=== PATIENT | female | born 1950 | race Caucasian/White ===

== ENCOUNTER 2021-06-22 15:38 | Inpatient (IN) | payer MEDICARE, SELFPAY ==
--- NOTE | 2021-06-22 | ECG_ITS ---
Test Reason : [facility] ED suspected TIA Blood Pressure : / mmHG Vent. Rate : 068 BPM Atrial Rate : 068 BPM P-R Int : 122 ms QRS Dur : 094 ms QT Int : 460 ms P-R-T Axes : -16 023 021 degrees QTc Int : 489 ms Normal sinus rhythm Prolonged QTc Abnormal ECG No previous ECGs available Referred By: Maritza Dumas Electronically Signed By:Catracho Davies
[2021-06-22 18:00] VITALS: BP 130/73; PULSE 81; RESP 17; TEMP 36.3; O2SAT 98
[2021-06-22 18:55] VITALS: BP 141/63; PULSE 99; RESP 17; TEMP 36.6; O2SAT 100
[2021-06-22 19:51] VITALS: BMI 31.1
[2021-06-22 22:22] VITALS: BP 170/72; PULSE 61
[2021-06-22] MEDS: Metoprolol Succinate ER 50 MG TAB.ER.24H PO (22:22)
[2021-06-22] MEDS: traZODone HCL 50 MG TABLET PO (22:22)
[2021-06-22 22:36] LABS: Amphetamine Screen Urine Not Detected (Not Detect); Barbiturates, Urine Not Detected (Not Detect); Benzodiazepines Screen Urine Not Detected (Not Detect); Cannabinoid Screen Urine POSITIVE (Not Detect); Cocaine Screen Urine Not Detected (Not Detect); Opiate Screen Urine Not Detected (Not Detect); Phencyclidine Screen Urine Not Detected (Not Detect)
[2021-06-23 09:44] LABS: Free T4 (Free Thyroxine) 1.07 ng/dL (0.71-1.85); Thyroid Stimulating Hormone 2.53 uIU/mL (0.32-4.0)
[2021-06-23] MEDS: Sertraline HCL 25 MG TABLET PO (09:46)
[2021-06-23] MEDS: Clopidogrel Bisulfate 75 MG TABLET PO (09:46)
[2021-06-23] MEDS: Thiamine HCL 100 MG TABLET PO (09:46)
--- NOTE | 2021-06-23 09:50 | HO.PSYADMNOT ---
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 She was initially brought to the ED since she complained of AH and VH seeing my , anxiety and poor concentration; she was diagnosed with UTI and treated. Also, since she presented with motor symptoms, she was diagnosed with a TIA, already fully worked-out at [facility]. She complained of depressive symptoms most of her life, characterized by depressed mood, anhedonia, lack of energy and feeling of hopelessness. She recently had several losses in her family since 2016, with the of her daughter and in February 2021, the of her . Her depressive symptoms worsened with neurovegetative symptoms elicited by severe anhedonia, poor sleep and poor appetite. On the ED, she also complained of passive suicidal ideation. Since she was unable to contract for safety in the ED, she was transferred to this facility for psychiatric stabilization. During the intake interview, she acknowledged depressive symptoms already detailed but also poor concentration, poor attention spam and poor short term memory. She was recently started on Zoloft 25. She was able to contract for safety and treatment options were discussed. Past Psychiatric History: Never admitted into the hospital for psychiatric reasons. She was treated by her PCP with Zoloft in the past with limited improvement. Medical Evaluation Reviewed: Yes PMF Narrative: HTN Family History: Paternal grandfather committed suicide. Her son and a daughter (who ) have substance abuse problems. Her son attempted suicide once, her daughter of alcohol intoxication (suicide?) Social History: The patient is the oldest of 2 siblings, milestones were achieved at expected age, she was raised by her parents, she attended regular school and graduated. Later, she attended college and she got a degree in nursing. She was , she had 3 children, she used to be highly functional. Recently, she lost her and she has good social support Substance History: Use of cannabis as edible only Trauma History: Denies Diagnostics Vital Signs (24Hr): Vital Signs - 24 hr 06/22/21 18:00 06/22/21 18:55 06/22/21 22:22 Temperature 97.4 F 97.9 F Pulse Rate 81 99 61 Respiratory Rate 17 17 Blood Pressure 130/73 141/63 H 170/72 H Pulse Oximetry 98 100 Body Mass Index 31.1 Labs Labs: Laboratory Results - last 48 hr 06/22/21 06/23/21 21:45 08:00 TSH 2.53 Free T4 1.07 Urine Opiates Screen Not Detected Ur Barbiturates Screen Not Detected Ur Phencyclidine Scrn Not Detected Ur Amphetamines Screen Not Detected U Benzodiazepines Scrn Not Detected Urine Cocaine Screen Not Detected U Marijuana (THC) Screen POSITIVE H Meds/Allergies Meds Home Medications Acetaminophen (Acetaminophen 325 Mg Tablet) 650 mg PO Q6H PRN PRN Reason: Headache/Pain Mild Scale (1-3) Al Hydroxide/Mg Hydroxide (Magnesium Hydrox/Alum Hydrox 30 Ml Oral.Susp) 30 ml PO Q6H PRN PRN Reason: Heartburn/Nausea Atorvastatin Calcium (Atorvastatin Calcium 80 Mg Tablet) 80 mg PO BEDTIME [facility] Clopidogrel Bisulfate (Clopidogrel Bisulfate 75 Mg Tablet) 75 mg PO DAILY [facility] Last Admin: 06/23/21 09:46 Dose: 75 mg Documented by: Hydroxyzine HCl (Hydroxyzine Hcl 25 Mg Tablet) 25 mg PO Q6H PRN PRN Reason: Anxiety Magnesium Hydroxide (Milk Of Magnesia 30 Ml Oral.Susp) 30 ml PO DAILY PRN PRN Reason: Constipation Metoprolol Succinate (Metoprolol Succinate Er 50 Mg Tab.Er.24h) 50 mg PO BEDTIME [facility]; Protocol Last Admin: 06/22/21 22:22 Dose: 50 mg Documented by: Sertraline HCl (Sertraline Hcl 25 Mg Tablet) 25 mg PO DAILY [facility] Last Admin: 06/23/21 09:46 Dose: 25 mg Documented by: Thiamine HCl (Thiamine Hcl 100 Mg Tablet) 100 mg PO DAILY [facility] Last Admin: 06/23/21 09:46 Dose: 100 mg Documented by: Trazodone HCl (Trazodone Hcl 50 Mg Tablet) 50 mg PO BEDTIME PRN PRN Reason: Insomnia Last Admin: 06/22/21 22:22 Dose: 50 mg Documented by: Allergies Allergies Allergy/AdvReac Type Severity Reaction Status Date / Time aspirin [ASA] AdvReac Mild Abdominal Verified 06/22/21 16:39 Pain Mental Status Exam Mental Status Exam Patient Appearance: Well Grooomed and Appropriate Patient Orientation: Person, Place, Time and Situation Level of Consciousness: Awake and Appropriate Patient Behavior: Cooperative and Anxious Mood Description: Calm and Appropriate Affect Description: Constricted Ability to Follow Directions: Good Speech Pattern: Clear Hallucinations: None (at this moment) Delusions: Not Present Thought Process: Linear Thought Content: positive for Circumstantial Depressive Symptoms: Increased Anxiety, Insomnia, Changes in Appetite, Loss of Int. in Activity, Feelings of Worthlessness and Feelings of Guilt Judgement: Fair Assessment & Plan Assessment & Plan (1) Major depression, recurrent: Status: Acute Qualifiers: Active/Remission status: currently active Major depression episode severity: severe Psychotic features: without psychotic features Qualified Code(s): F33.2 - Major depressive disorder, recurrent severe without psychotic features Code(s): F33.9 - Major depressive disorder, recurrent, unspecified Assessment and Plan: The patient is an elderly female, , with a long history of dysphoria, not formally treated, admitted after an exacerbation of depression after TIA and UTI. Plan: Increase Zoloft up to 50 mg po daily. Gather collateral information. Reason for continued inpatient stay Substantial Risk for: harm to self, inability to function, rapid decompensation and med/psych decompensation
[2021-06-23 09:57] LABS: Vitamin B12 > 2000 pg/mL (200-900)
[2021-06-23 17:54] VITALS: BP 132/62; PULSE 60; TEMP 36.9; O2SAT 97
[2021-06-23 20:12] VITALS: BP 137/71; PULSE 58
[2021-06-23] MEDS: Atorvastatin Calcium 80 MG TABLET PO (20:13)
[2021-06-24] MEDS: Sertraline HCL 50 MG TABLET PO (08:08)
[2021-06-24] MEDS: Thiamine HCL 100 MG TABLET PO (08:08)
[2021-06-24] MEDS: Clopidogrel Bisulfate 75 MG TABLET PO (08:08)
--- NOTE | 2021-06-24 09:55 | HO.PSYCHPN ---
Subjective Subjective Date of Service: 06/24/21 Reason For Visit: Major Depressive Disorder Interim History: pt seen in her room, reclining in her bed. she expresses some concern about her BP/P, saying her metoprolol has been held. she denies any symptoms of hypotension. she asks about changing the HOLD params for the medication. MD states he will look into her BP/P concerns. otherwise she reports she saw her son yesterday, which made her very happy. she is not comfortable returning to live with him due to the two pit bulls, however. no other questions or complaints. per staff, pt's recently and she has not been taking care of herself. no issues on the unit. Mental Status Exam Mental Status Exam Narrative: appropriately dressed and groomed. no PMA/PMR. cooperative. speech soft with reduced prosody, otherwise WNL. thoughts linear and logical. affect constricted, normo-intense. no SI/HI/AVH expressed. Diagnostics Vital Signs (24Hr): Vital Signs - 24 hr 06/23/21 17:54 06/23/21 20:12 Temperature 98.4 F Pulse Rate 60 58 Blood Pressure 132/62 137/71 Pulse Oximetry 97 Body Mass Index 31.1 Labs Labs: Laboratory Results - last 48 hr 06/22/21 06/23/21 06/23/21 21:45 08:00 08:00 Vitamin B12 > 2000 H TSH 2.53 Free T4 1.07 Urine Opiates Screen Not Detected Ur Barbiturates Screen Not Detected Ur Phencyclidine Scrn Not Detected Ur Amphetamines Screen Not Detected U Benzodiazepines Scrn Not Detected Urine Cocaine Screen Not Detected U Marijuana (THC) Screen POSITIVE H Medications Medications Current Medications Generic Name Dose Route Start Last Admin Trade Name Freq PRN Reason Stop Dose Admin Acetaminophen 650 mg 06/22/21 20:32 Acetaminophen 325 Mg Tablet PO Q6H PRN Headache/Pain Mild Scale (1-3) Al Hydroxide/Mg Hydroxide 30 ml 06/22/21 20:32 Magnesium Hydrox/Alum Hydrox 30 Ml Oral.Susp PO Q6H PRN Heartburn/Nausea Atorvastatin Calcium 80 mg 06/23/21 21:00 06/23/21 20:13 Atorvastatin Calcium 80 Mg Tablet PO 80 mg BEDTIME [facility] Administration Clopidogrel Bisulfate 75 mg 06/23/21 09:00 06/24/21 08:08 Clopidogrel Bisulfate 75 Mg Tablet PO 75 mg DAILY [facility] Administration Hydroxyzine HCl 25 mg 06/22/21 20:32 Hydroxyzine Hcl 25 Mg Tablet PO Q6H PRN Anxiety Magnesium Hydroxide 30 ml 06/22/21 20:32 Milk Of Magnesia 30 Ml Oral.Susp PO DAILY PRN Constipation Metoprolol Succinate 50 mg 06/22/21 22:00 06/23/21 20:12 Metoprolol Succinate Er 50 Mg Tab.Er.24h PO Not Given BEDTIME [facility] Protocol Sertraline HCl 50 mg 06/24/21 09:00 06/24/21 08:08 Sertraline Hcl 50 Mg Tablet PO 50 mg DAILY [facility] Administration Thiamine HCl 100 mg 06/23/21 09:00 06/24/21 08:08 Thiamine Hcl 100 Mg Tablet PO 100 mg DAILY [facility] Administration Trazodone HCl 50 mg 06/22/21 20:32 06/22/21 22:22 Trazodone Hcl 50 Mg Tablet PO 50 mg BEDTIME PRN Administration Insomnia Allergies Allergies Allergy/AdvReac Type Severity Reaction Status Date / Time aspirin [ASA] AdvReac Mild Abdominal Verified 06/22/21 16:39 Pain Assessment & Plan Assessment & Plan (1) Major depression, recurrent: Qualifiers: Active/Remission status: currently active Major depression episode severity: severe Psychotic features: without psychotic features Qualified Code(s): F33.2 - Major depressive disorder, recurrent severe without psychotic features Status: Acute Code(s): F33.9 - Major depressive disorder, recurrent, unspecified Assessment and Plan: The patient is an elderly female, , with a long history of dysphoria, not formally treated, admitted after an exacerbation of depression after TIA and UTI. Plan: Increased Zoloft up to 50 mg po daily. changed annika on metoprolol to allow for slower pulse. Gather collateral information. Greater than 50% of the session was spent on counseling and/or coordination of care Reason for contiued inpatient stay Substantial Risk for: inability to function
--- NOTE | 2021-06-24 15:30 | HO.HSGERICON ---
History of Present Illness Data of Consult Service Date: 06/24/21 Primary Care Provider: Camila Bernal MD [facility] Reason for consult: medical evaluation 71 Y O F with PMH of?hypertension, hyperlipidemia, anxiety, depression?prsently admitted to inpatient [facility] Psych for major depression. She was admitted from [facility] and I reviewed the record there. She presently there around June 17 with Left extremity numbness/involuntary movement/left cheek?numbness Symptoms resolved by etime patient came to ER. Patient underwent CT of head?CT angio of head and neck?which did not show any acute pathology?however showed?mild to moderate narrowing in the left vertebral artery?and right ACID CHANGER Neurology was consulted ; underwent?MRI of brain which did not show any pathology either Echo was within normal limits Neuro recommended plavix and continue statin [ patient intolerant to aspirin]. She was noted to be very depressed. Patient lost her ?2 months ago and still grieving the loss She was severely depressed?during last hospitalization she was offered inpatient psych?however?patient thought she would do better at home?and she went home but this time she equested psychiatric team consult?for?possible inpatient psych admission amd ws sent here at [facility]. Discharge Medications from [facility] reviewed Atorvastatin (atorvastatin 80 mg oral tablet)??See Instructions??TAKE ONE TABLET BY MOUTH EVERY DAY? Clopidogrel (Plavix 75 mg oral tablet)??75??Milligram??1??tablet??By Mouth??Daily? Sertraline (sertraline 25 mg oral tablet)??2??tab(s)??50??Milligram??By Mouth??Daily? Thiamine (thiamine 100 mg oral tablet)??100??Milligram??1??tablet??By Mouth??Daily? Trazodone (traZODone 50 mg oral tablet)??50??Milligram??1??tablet??By Mouth??Daily at bedtime?? She is presently doing well and has no acute complaint, she feels safe and fee that she is getting the right care. Review of Systems Review of Systems: Gen: no fever Resp: no sob, no cough CV: no chest, no POON, no leg edema GI: No n/v, no abd pain Neuro: No confusion Pscyh: happy, no SI PMFSH Medical History (Updated 06/24/21 @ 16:08 by Prasanth Riggs MD) Anxiety History of positive PPD History of TIA (transient ischemic attack) HLD (hyperlipidemia) HTN (hypertension) IBS (irritable bowel syndrome) Migraine Vitamin D deficiency Pertinent family history: CAD--Mother and father Surgical History (Updated 06/24/21 @ 15:41 by Prasanth Riggs MD) H/O abdominal hysterectomy H/O gastric bypass H/O hemorrhoidectomy Social History Household Members: Children and Other Housing: House Do you presently have visiting nurse or other home services: No Patient Tobacco Use Status: Never used Tobacco Use of substances other than those prescribed or required for medical reasons: Yes Substance Use Type: Marijuana Substance Use Frequency: Occasionally Last Used Substance: Just Prior to Admission Currently Displaying Signs/Symptoms of Drug Intoxication Withdrawal: No Any prior treatment program specific to substance use: No Have you been hit, kicked, punched, or otherwise hurt by someone within the past year? If so, by whom?: No Do you feel safe in your current relationship?: No Current Relationship Is there a partner from a previous relationship who is making you feel unsafe now?: No Are you made to feel afraid or neglected: No Advance Directives: No Advance Directives Information Provided: Yes Do you have thoughts of harming others: None Do you have a plan to hurt others: No Plan Recently lost weight without trying: Unsure Eating poorly because of decreased appetite: Yes Nutrition Risks: No Nutritional Risk Patient : No : No Poor oral hygiene: No service: No Sexual orientation: Straight/Heterosexual Meds Allergies Allergy/AdvReac Type Severity Reaction Status Date / Time aspirin [ASA] AdvReac Mild Abdominal Verified 06/22/21 16:39 Pain Active Medications: Current Medications Generic Name Dose Route Start Last Admin Trade Name Freq PRN Reason Stop Dose Admin Acetaminophen 650 mg 06/22/21 20:32 Acetaminophen 325 Mg Tablet PO Q6H PRN Headache/Pain Mild Scale (1-3) Al Hydroxide/Mg Hydroxide 30 ml 06/22/21 20:32 Magnesium Hydrox/Alum Hydrox 30 Ml Oral.Susp PO Q6H PRN Heartburn/Nausea Atorvastatin Calcium 80 mg 06/23/21 21:00 06/23/21 20:13 Atorvastatin Calcium 80 Mg Tablet PO 80 mg BEDTIME [facility] Administration Clopidogrel Bisulfate 75 mg 06/23/21 09:00 06/24/21 08:08 Clopidogrel Bisulfate 75 Mg Tablet PO 75 mg DAILY [facility] Administration Hydroxyzine HCl 25 mg 06/22/21 20:32 Hydroxyzine Hcl 25 Mg Tablet PO Q6H PRN Anxiety Magnesium Hydroxide 30 ml 06/22/21 20:32 Milk Of Magnesia 30 Ml Oral.Susp PO DAILY PRN Constipation Metoprolol Succinate 50 mg 06/22/21 22:00 06/23/21 20:12 Metoprolol Succinate Er 50 Mg Tab.Er.24h PO Not Given BEDTIME [facility] Protocol Sertraline HCl 50 mg 06/24/21 09:00 06/24/21 08:08 Sertraline Hcl 50 Mg Tablet PO 50 mg DAILY [facility] Administration Thiamine HCl 100 mg 06/23/21 09:00 06/24/21 08:08 Thiamine Hcl 100 Mg Tablet PO 100 mg DAILY [facility] Administration Trazodone HCl 50 mg 06/22/21 20:32 06/22/21 22:22 Trazodone Hcl 50 Mg Tablet PO 50 mg BEDTIME PRN Administration Insomnia Assessment and Plan (1) History of TIA (transient ischemic attack): Status: Acute (2) HLD (hyperlipidemia): Status: Acute (3) HTN (hypertension): Status: Acute (4) Major depression, recurrent: Qualifiers: Active/Remission status: currently active Major depression episode severity: severe Psychotic features: without psychotic features Qualified Code(s): F33.2 - Major depressive disorder, recurrent severe without psychotic features Status: Acute 71 Y O F with PMH of?hypertension, hyperlipidemia, anxiety, depression, recent hospitalization at [facility] for TIA and now here fore major Depression and seem to be doing well. Plan: I will advise that she continue all her medication for HTN, HLD and Plavix for TIA, she doesn't tolerate ASA. Her heart rate seem to be on low sie so we Can reduce Toprol to 25 and hold for HR less than 60. Psychiatric care per Psychiatric care per Psych team.
[2021-06-24 18:00] VITALS: BP 125/61; PULSE 97; RESP 17; TEMP 36.8; O2SAT 98
[2021-06-24] MEDS: Atorvastatin Calcium 80 MG TABLET PO (20:46)
[2021-06-24 20:47] VITALS: BP 112/64; PULSE 69
[2021-06-24] MEDS: Metoprolol Succinate ER 25 MG TAB.ER.24H PO (20:47)
[2021-06-25 06:00] VITALS: BP 113/59; PULSE 64; TEMP 36.5; O2SAT 97
[2021-06-25] MEDS: Clopidogrel Bisulfate 75 MG TABLET PO (08:09)
[2021-06-25] MEDS: Sertraline HCL 50 MG TABLET PO (08:09)
[2021-06-25] MEDS: Thiamine HCL 100 MG TABLET PO (08:09)
--- NOTE | 2021-06-25 11:31 | HO.PSYCHPN ---
Subjective Subjective Date of Service: 06/25/21 Reason For Visit: Major Depressive Disorder Interim History: pt asleep at the time of interview. she did not rouse to voice; it was felt to be more therapeutic to allow her to rest than to awaken her. per staff, she has had no issues in the past 24H. Mental Status Exam Mental Status Exam Narrative: sleeping in her bed. Diagnostics Vital Signs (24Hr): Vital Signs - 24 hr 06/24/21 18:00 06/24/21 20:47 06/25/21 06:00 Temperature 98.3 F 97.7 F Pulse Rate 97 69 64 Respiratory Rate 17 Blood Pressure 125/61 112/64 113/59 L Pulse Oximetry 98 97 Body Mass Index 31.1 Medications Medications Current Medications Generic Name Dose Route Start Last Admin Trade Name Freq PRN Reason Stop Dose Admin Acetaminophen 650 mg 06/22/21 20:32 Acetaminophen 325 Mg Tablet PO Q6H PRN Headache/Pain Mild Scale (1-3) Al Hydroxide/Mg Hydroxide 30 ml 06/22/21 20:32 Magnesium Hydrox/Alum Hydrox 30 Ml Oral.Susp PO Q6H PRN Heartburn/Nausea Atorvastatin Calcium 80 mg 06/23/21 21:00 06/24/21 20:46 Atorvastatin Calcium 80 Mg Tablet PO 80 mg BEDTIME [facility] Administration Clopidogrel Bisulfate 75 mg 06/23/21 09:00 06/25/21 08:09 Clopidogrel Bisulfate 75 Mg Tablet PO 75 mg DAILY [facility] Administration Hydroxyzine HCl 25 mg 06/22/21 20:32 Hydroxyzine Hcl 25 Mg Tablet PO Q6H PRN Anxiety Magnesium Hydroxide 30 ml 06/22/21 20:32 Milk Of Magnesia 30 Ml Oral.Susp PO DAILY PRN Constipation Metoprolol Succinate 25 mg 06/24/21 21:00 06/24/21 20:47 Metoprolol Succinate Er 25 Mg Tab.Er.24h PO 25 mg BEDTIME [facility] Administration Protocol Sertraline HCl 50 mg 06/24/21 09:00 06/25/21 08:09 Sertraline Hcl 50 Mg Tablet PO 50 mg DAILY [facility] Administration Thiamine HCl 100 mg 06/23/21 09:00 06/25/21 08:09 Thiamine Hcl 100 Mg Tablet PO 100 mg DAILY [facility] Administration Trazodone HCl 50 mg 06/22/21 20:32 06/22/21 22:22 Trazodone Hcl 50 Mg Tablet PO 50 mg BEDTIME PRN Administration Insomnia Allergies Allergies Allergy/AdvReac Type Severity Reaction Status Date / Time aspirin [ASA] AdvReac Mild Abdominal Verified 06/22/21 16:39 Pain Assessment & Plan Assessment & Plan (1) History of TIA (transient ischemic attack): Status: Acute Code(s): Z86.73 - Personal history of transient ischemic attack (TIA), and cerebral infarction without residual deficits (2) HLD (hyperlipidemia): Status: Acute Code(s): E78.5 - Hyperlipidemia, unspecified (3) HTN (hypertension): Status: Acute Code(s): I10 - Essential (primary) hypertension (4) Major depression, recurrent: Qualifiers: Active/Remission status: currently active Major depression episode severity: severe Psychotic features: without psychotic features Qualified Code(s): F33.2 - Major depressive disorder, recurrent severe without psychotic features Status: Acute Code(s): F33.9 - Major depressive disorder, recurrent, unspecified Assessment and Plan: 71 Y O F with PMH of?hypertension, hyperlipidemia, anxiety, depression, recent hospitalization at [facility] for TIA and now here fore major Depression and seem to be doing well. Plan: I will advise that she continue all her medication for HTN, HLD and Plavix for TIA, she doesn't tolerate ASA. Her heart rate seem to be on low sie so we Can reduce Toprol to 25 and hold for HR less than 60. Psychiatric care per Psychiatric care per Psych team. Greater than 50% of the session was spent on counseling and/or coordination of care Reason for contiued inpatient stay Substantial Risk for: harm to self, inability to function and rapid decompensation
[2021-06-25] MEDS: Acetaminophen 325 MG TABLET 650 MG PO (13:11)
[2021-06-25] MEDS: Magnesium Hydrox/Alum Hydrox 30 ML ORAL.SUSP PO (13:11)
[2021-06-25 18:00] VITALS: BP 122/58; PULSE 59; RESP 17; TEMP 36.5; O2SAT 98
[2021-06-25] MEDS: Loperamide HCl 2 MG CAPSULE PO ×2 (18:05→23:57)
[2021-06-25] MEDS: Atorvastatin Calcium 80 MG TABLET PO (20:06)
[2021-06-25 20:07] VITALS: BP 127/59; PULSE 57
[2021-06-25] MEDS: Metoprolol Succinate ER 25 MG TAB.ER.24H PO (20:07)
[2021-06-26] MEDS: Loperamide HCl 2 MG CAPSULE PO (09:10)
[2021-06-26] MEDS: Clopidogrel Bisulfate 75 MG TABLET PO (09:10)
[2021-06-26] MEDS: Sertraline HCL 50 MG TABLET PO (09:10)
[2021-06-26] MEDS: Thiamine HCL 100 MG TABLET PO (09:10)
[2021-06-26 11:00] VITALS: TEMP 36.9
--- NOTE | 2021-06-26 13:16 | HO.PSYCHPN ---
Subjective Subjective Date of Service: 06/26/21 Reason For Visit: Major Depressive Disorder Interim History: The patient reported still depressed with lack of energy. She reported poor sleep. OT did a MOCA and she scored 21/30. We will have a family meeting with her son at 3 pm today. Review of Systems Acute medical concerns: No Medical Review of Systems: unchanged Mental Status Exam Mental Status Exam Patient Appearance: Well Grooomed Patient Orientation: Person, Place, Time and Situation Level of Consciousness: Awake Patient Behavior: Appropriate and Cooperative Mood Description: Withdrawn and Depressed Affect Description: Constricted Patient Cognition Impaired: Yes Ability to Follow Directions: Good Speech Pattern: Clear Memory Description: Intact Hallucinations: None Delusions: Not Present Thought Process: Linear Thought Content: positive for Circumstantial Judgement: Fair Diagnostics Vital Signs (24Hr): Vital Signs - 24 hr 06/25/21 18:00 06/25/21 20:07 Temperature 97.7 F Pulse Rate 59 57 Respiratory Rate 17 Blood Pressure 122/58 L 127/59 L Pulse Oximetry 98 Body Mass Index 31.1 Medications Medications Current Medications Generic Name Dose Route Start Last Admin Trade Name Freq PRN Reason Stop Dose Admin Acetaminophen 650 mg 06/22/21 20:32 06/25/21 13:11 Acetaminophen 325 Mg Tablet PO 650 mg Q6H PRN Administration Headache/Pain Mild Scale (1-3) Al Hydroxide/Mg Hydroxide 30 ml 06/22/21 20:32 06/25/21 13:11 Magnesium Hydrox/Alum Hydrox 30 Ml Oral.Susp PO 30 ml Q6H PRN Administration Heartburn/Nausea Atorvastatin Calcium 80 mg 06/23/21 21:00 06/25/21 20:06 Atorvastatin Calcium 80 Mg Tablet PO 80 mg BEDTIME GERMAIN Administration Clopidogrel Bisulfate 75 mg 06/23/21 09:00 06/26/21 09:10 Clopidogrel Bisulfate 75 Mg Tablet PO 75 mg DAILY GERMAIN Administration Hydroxyzine HCl 25 mg 06/22/21 20:32 Hydroxyzine Hcl 25 Mg Tablet PO Q6H PRN Anxiety Loperamide HCl 2 mg 06/25/21 16:51 06/26/21 09:10 Loperamide Hcl 2 Mg Capsule PO 2 mg Q6H PRN Administration Diarrhea Magnesium Hydroxide 30 ml 06/22/21 20:32 Milk Of Magnesia 30 Ml Oral.Susp PO DAILY PRN Constipation Metoprolol Succinate 25 mg 06/24/21 21:00 06/25/21 20:07 Metoprolol Succinate Er 25 Mg Tab.Er.24h PO 25 mg BEDTIME GERMAIN Administration Protocol Sertraline HCl 50 mg 06/24/21 09:00 06/26/21 09:10 Sertraline Hcl 50 Mg Tablet PO 50 mg DAILY GERMAIN Administration Thiamine HCl 100 mg 06/23/21 09:00 06/26/21 09:10 Thiamine Hcl 100 Mg Tablet PO 100 mg DAILY GERMAIN Administration Trazodone HCl 50 mg 06/22/21 20:32 06/22/21 22:22 Trazodone Hcl 50 Mg Tablet PO 50 mg BEDTIME PRN Administration Insomnia Allergies Allergies Allergy/AdvReac Type Severity Reaction Status Date / Time aspirin [ASA] AdvReac Mild Abdominal Verified 06/22/21 16:39 Pain Assessment & Plan Assessment & Plan (1) History of TIA (transient ischemic attack): Status: Acute Code(s): Z86.73 - Personal history of transient ischemic attack (TIA), and cerebral infarction without residual deficits (2) HLD (hyperlipidemia): Status: Acute Code(s): E78.5 - Hyperlipidemia, unspecified (3) HTN (hypertension): Status: Acute Code(s): I10 - Essential (primary) hypertension (4) Major depression, recurrent: Qualifiers: Active/Remission status: currently active Major depression episode severity: severe Psychotic features: without psychotic features Qualified Code(s): F33.2 - Major depressive disorder, recurrent severe without psychotic features Status: Acute Code(s): F33.9 - Major depressive disorder, recurrent, unspecified Assessment and Plan: 71 Y O F with PMH of?hypertension, hyperlipidemia, anxiety, depression, recent hospitalization at [facility] for TIA and now here fore major Depression and seem to be doing well. Plan: I will advise that she continue all her medication for HTN, HLD and Plavix for TIA, she doesn't tolerate ASA. Her heart rate seem to be on low sie so we Can reduce Toprol to 25 and hold for HR less than 60. Psychiatric care per Psychiatric care per Psych team. Greater than 50% of the session was spent on counseling and/or coordination of care Reason for contiued inpatient stay Substantial Risk for: harm to self, inability to function, rapid decompensation and med/psych decompensation
[2021-06-26 15:47] VITALS: BP 92/51; PULSE 85; O2SAT 97
[2021-06-26 17:36] VITALS: BP 118/62; PULSE 79; RESP 18; TEMP 37.7; O2SAT 99
[2021-06-26 17:57] VITALS: TEMP 37.5
[2021-06-26] MEDS: Acetaminophen 325 MG TABLET 650 MG PO (18:03)
[2021-06-26 19:42] LABS: MANUAL DIFF FLAG NO
[2021-06-26 19:43] LABS: Basophils Percent Auto 0.2 % (0-2); Eosinophils Percent Auto 0.4 % (0-4); Hematocrit 30.1 % (37-47); Hemoglobin 9.7 g/dl (12.0-16.0); Imm Gran Abs Auto 0.01 X10*3/uL (0.00-0.03); Imm Gran Pct Auto 0.2 % (0.0-0.4); Lymphocytes Absolute Auto 0.9 X10*3/uL (1.2-4.9); Lymphocytes Percent Auto 15.9 % (20-40); Mean Corpuscular HGB Conc 32.2 g/dl (31.0-35.0); Mean Corpuscular Hemoglobin 26.1 pg (27.0-33.0); Mean Corpuscular Volume 81.1 fL (80-98); Mean Platelet Volume 11.2 fL (9.4-12.3); Monocytes Absolute Auto 0.7 X10*3/uL (0.1-1.2); Monocytes Percent Auto 11.6 % (2-11); Neutrophils Absolute Auto 4.1 X10*3/uL (2.0-8.3); Neutrophils Percent Auto 71.7 % (45-73); Platelet Count 234 X10*3/uL (160-400); Red Blood Count 3.71 X10*6/uL (4.20-5.50); Red Cell Distribution Width 14.5 % (11.0-16.0); White Blood Count 5.7 X10*3/uL (4.8-10.8)
[2021-06-26 20:06] LABS: Anion Gap 9 (12-20); Blood Urea Nitrogen 15 mg/dL (9-16); Calcium 8.5 mg/dL (8.4-10.2); Carbon Dioxide 26 mmol/L (22-29); Chloride 107 mmol/L (96-108); Creatinine Clr Calc Pharmacy 69.5; Estimated Glomerular Filt Rate > 60; Glucose Random 102 mg/dL (60-115); Potassium 3.3 mmol/L (3.3-5.1); Sodium 139 mmol/L (135-145)
[2021-06-26 21:06] VITALS: BP 133/63; PULSE 62; RESP 16; TEMP 37.4; O2SAT 95
[2021-06-26 21:08] VITALS: BP 133/63; PULSE 62
[2021-06-26] MEDS: Metoprolol Succinate ER 25 MG TAB.ER.24H PO (21:08)
[2021-06-26] MEDS: Atorvastatin Calcium 80 MG TABLET PO (21:09)
[2021-06-27 10:33] VITALS: BP 126/64; PULSE 64; RESP 18; TEMP 36.6; O2SAT 97
[2021-06-27] MEDS: Clopidogrel Bisulfate 75 MG TABLET PO (10:38)
[2021-06-27] MEDS: Thiamine HCL 100 MG TABLET PO (10:38)
[2021-06-27] MEDS: Magnesium Hydrox/Alum Hydrox 30 ML ORAL.SUSP PO ×2 (13:12→20:18)
[2021-06-27 18:00] VITALS: BP 133/60; PULSE 61; TEMP 36.8; O2SAT 98
[2021-06-27] MEDS: Atorvastatin Calcium 80 MG TABLET PO (19:54)
[2021-06-27 19:56] VITALS: BP 146/70; PULSE 60
[2021-06-27] MEDS: Metoprolol Succinate ER 25 MG TAB.ER.24H PO (19:56)
[2021-06-27] MEDS: Mirtazapine 7.5 MG TABLET PO (20:59)
[2021-06-28] MEDS: Thiamine HCL 100 MG TABLET PO (08:16)
[2021-06-28] MEDS: Clopidogrel Bisulfate 75 MG TABLET PO (08:16)
--- NOTE | 2021-06-28 11:58 | P.PNPSI_ITS ---
Subjective Subjective Date of Service: 06/27/21 Reason For Visit: Major Depressive Disorder Interim History: The patient reported over-sedation with Zoloft and she refused that medication today. Nursing staff reported that she had a low-grade fever last night but resolution of her diarrhea. During the assessment, we discussed treatment options since Zoloft was over sedating her Medication Compliance: Intermittent Side effects from medications: Yes (Over-sedation) Review of Systems Acute medical concerns: No Medical Review of Systems: unchanged Mental Status Exam Mental Status Exam Patient Appearance: Well Grooomed Patient Orientation: Person and Situation Level of Consciousness: Awake Patient Behavior: Appropriate and Cooperative Mood Description: Calm and Depressed Affect Description: Constricted Patient Cognition Impaired: No Ability to Follow Directions: Good Speech Pattern: Clear Hallucinations: None Delusions: Not Present Thought Process: Goal Oriented Thought Content: positive for Intact Depressive Symptoms: Increased Anxiety and Changes in Appetite Judgement: Fair Diagnostics Vital Signs (24Hr): Vital Signs - 24 hr 06/27/21 18:00 06/27/21 19:56 Temperature 98.3 F Pulse Rate 61 60 Blood Pressure 133/60 146/70 H Pulse Oximetry 98 Body Mass Index 31.1 Labs Results: 06/26/21 19:36 06/26/21 19:36 Labs: Laboratory Results - last 48 hr 06/26/21 06/26/21 19:36 19:36 WBC 5.7 RBC 3.71 L Hgb 9.7 L Hct 30.1 L MCV 81.1 MCH 26.1 L MCHC 32.2 RDW 14.5 Plt Count 234 MPV 11.2 Immature Gran % (Auto) 0.2 Neut % (Auto) 71.7 Lymph % (Auto) 15.9 L Irion % (Auto) 11.6 H Eos % (Auto) 0.4 Baso % (Auto) 0.2 Lymph # (Auto) 0.9 L Irion # (Auto) 0.7 Eos # (Auto) 0.0 Baso # (Auto) 0.0 Abs Immat Gran (auto) 0.01 Absolute Neuts (auto) 4.1 Absolute Nucleated RBC 0.000 Nucleated RBC % (auto) 0.0 Sodium 139 Potassium 3.3 Chloride 107 Carbon Dioxide 26 Anion Gap 9 L BUN 15 Creatinine 0.77 Estim Creat Clear Calc 69.5 Estimated GFR > 60 Random Glucose 102 Calcium 8.5 Medications Medications Current Medications Generic Name Dose Route Start Last Admin Trade Name Freq PRN Reason Stop Dose Admin Acetaminophen 650 mg 06/22/21 20:32 06/26/21 18:03 Acetaminophen 325 Mg Tablet PO 650 mg Q6H PRN Administration Headache/Pain Mild Scale (1-3) Al Hydroxide/Mg Hydroxide 30 ml 06/22/21 20:32 06/27/21 20:18 Magnesium Hydrox/Alum Hydrox 30 Ml Oral.Susp PO 30 ml Q6H PRN Administration Heartburn/Nausea Atorvastatin Calcium 80 mg 06/23/21 21:00 06/27/21 19:54 Atorvastatin Calcium 80 Mg Tablet PO 80 mg BEDTIME GERMAIN Administration Clopidogrel Bisulfate 75 mg 06/23/21 09:00 06/28/21 08:16 Clopidogrel Bisulfate 75 Mg Tablet PO 75 mg DAILY GERMAIN Administration Hydroxyzine HCl 25 mg 06/22/21 20:32 Hydroxyzine Hcl 25 Mg Tablet PO Q6H PRN Anxiety Loperamide HCl 2 mg 06/25/21 16:51 06/26/21 09:10 Loperamide Hcl 2 Mg Capsule PO 2 mg Q6H PRN Administration Diarrhea Magnesium Hydroxide 30 ml 06/22/21 20:32 Milk Of Magnesia 30 Ml Oral.Susp PO DAILY PRN Constipation Metoprolol Succinate 25 mg 06/24/21 21:00 06/27/21 19:56 Metoprolol Succinate Er 25 Mg Tab.Er.24h PO 25 mg BEDTIME GERMAIN Administration Protocol Mirtazapine 7.5 mg 06/27/21 21:00 06/27/21 20:59 Mirtazapine 7.5 Mg Tablet PO 7.5 mg BEDTIME GERMAIN Administration Thiamine HCl 100 mg 06/23/21 09:00 06/28/21 08:16 Thiamine Hcl 100 Mg Tablet PO 100 mg DAILY GERMAIN Administration Trazodone HCl 50 mg 06/22/21 20:32 06/22/21 22:22 Trazodone Hcl 50 Mg Tablet PO 50 mg BEDTIME PRN Administration Insomnia Allergies Allergies Allergy/AdvReac Type Severity Reaction Status Date / Time aspirin [ASA] AdvReac Mild Abdominal Verified 06/22/21 16:39 Pain Assessment & Plan Assessment & Plan (1) History of TIA (transient ischemic attack): Status: Acute Code(s): Z86.73 - Personal history of transient ischemic attack (TIA), and cerebral infarction without residual deficits (2) HLD (hyperlipidemia): Status: Acute Code(s): E78.5 - Hyperlipidemia, unspecified (3) HTN (hypertension): Status: Acute Code(s): I10 - Essential (primary) hypertension (4) Major depression, recurrent: Qualifiers: Active/Remission status: currently active Major depression episode severity: severe Psychotic features: without psychotic features Qualified Code(s): F33.2 - Major depressive disorder, recurrent severe without psychotic features Status: Acute Code(s): F33.9 - Major depressive disorder, recurrent, unspecified Assessment and Plan: 71 Y O F with PMH of?hypertension, hyperlipidemia, anxiety, depression, recent hospitalization at [facility] for TIA and now here fore major Depression and seem to be doing well. Plan: 1. . Discontinue Zoloft. 2. . Start Remeron 7.5 mg p.o. q.h.s. to target depression Greater than 50% of the session was spent on counseling and/or coordination of care Reason for contiued inpatient stay Substantial Risk for: harm to self, inability to function, rapid decompensation and med/psych decompensation
--- NOTE | 2021-06-28 13:51 | P.PNPSI_ITS ---
Subjective Subjective Date of Service: 06/28/21 Reason For Visit: Major Depressive Disorder Interim History: The patient reported mild over-sedation in the morning with Remeron. It she reports dysphoria but she is able to contract for safety in the facility. Seems we have changed antidepressants, we will plan discharge for early next week until reassured tolerability and improvement of depression Medication Compliance: Yes Side effects from medications: No Attending Groups: Yes Review of Systems Acute medical concerns: No Medical Review of Systems: unchanged Mental Status Exam Mental Status Exam Patient Appearance: Well Grooomed Patient Orientation: Person, Place, Time and Situation Level of Consciousness: Awake Patient Behavior: Appropriate Mood Description: Calm Affect Description: Constricted Patient Cognition Impaired: No Ability to Follow Directions: Good Speech Pattern: Clear Memory Description: Intact Hallucinations: None Delusions: Not Present Thought Process: Goal Oriented Thought Content: positive for Intact Depressive Symptoms: Increased Anxiety, Loss of Int. in Activity and Feelings of Worthlessness Judgement: Fair Diagnostics Vital Signs (24Hr): Vital Signs - 24 hr 06/27/21 18:00 06/27/21 19:56 Temperature 98.3 F Pulse Rate 61 60 Blood Pressure 133/60 146/70 H Pulse Oximetry 98 Body Mass Index 31.1 Labs Results: 06/26/21 19:36 06/26/21 19:36 Labs: Laboratory Results - last 48 hr 06/26/21 06/26/21 19:36 19:36 WBC 5.7 RBC 3.71 L Hgb 9.7 L Hct 30.1 L MCV 81.1 MCH 26.1 L MCHC 32.2 RDW 14.5 Plt Count 234 MPV 11.2 Immature Gran % (Auto) 0.2 Neut % (Auto) 71.7 Lymph % (Auto) 15.9 L Howard % (Auto) 11.6 H Eos % (Auto) 0.4 Baso % (Auto) 0.2 Lymph # (Auto) 0.9 L Howard # (Auto) 0.7 Eos # (Auto) 0.0 Baso # (Auto) 0.0 Abs Immat Gran (auto) 0.01 Absolute Neuts (auto) 4.1 Absolute Nucleated RBC 0.000 Nucleated RBC % (auto) 0.0 Sodium 139 Potassium 3.3 Chloride 107 Carbon Dioxide 26 Anion Gap 9 L BUN 15 Creatinine 0.77 Estim Creat Clear Calc 69.5 Estimated GFR > 60 Random Glucose 102 Calcium 8.5 Medications Medications Current Medications Generic Name Dose Route Start Last Admin Trade Name Freq PRN Reason Stop Dose Admin Acetaminophen 650 mg 06/22/21 20:32 06/26/21 18:03 Acetaminophen 325 Mg Tablet PO 650 mg Q6H PRN Administration Headache/Pain Mild Scale (1-3) Al Hydroxide/Mg Hydroxide 30 ml 06/22/21 20:32 06/27/21 20:18 Magnesium Hydrox/Alum Hydrox 30 Ml Oral.Susp PO 30 ml Q6H PRN Administration Heartburn/Nausea Atorvastatin Calcium 80 mg 06/23/21 21:00 06/27/21 19:54 Atorvastatin Calcium 80 Mg Tablet PO 80 mg BEDTIME GERMAIN Administration Clopidogrel Bisulfate 75 mg 06/23/21 09:00 06/28/21 08:16 Clopidogrel Bisulfate 75 Mg Tablet PO 75 mg DAILY GERMAIN Administration Hydroxyzine HCl 25 mg 06/22/21 20:32 Hydroxyzine Hcl 25 Mg Tablet PO Q6H PRN Anxiety Loperamide HCl 2 mg 06/25/21 16:51 06/26/21 09:10 Loperamide Hcl 2 Mg Capsule PO 2 mg Q6H PRN Administration Diarrhea Magnesium Hydroxide 30 ml 06/22/21 20:32 Milk Of Magnesia 30 Ml Oral.Susp PO DAILY PRN Constipation Metoprolol Succinate 25 mg 06/24/21 21:00 06/27/21 19:56 Metoprolol Succinate Er 25 Mg Tab.Er.24h PO 25 mg BEDTIME GERMAIN Administration Protocol Mirtazapine 7.5 mg 06/27/21 21:00 06/27/21 20:59 Mirtazapine 7.5 Mg Tablet PO 7.5 mg BEDTIME GERMAIN Administration Thiamine HCl 100 mg 06/23/21 09:00 06/28/21 08:16 Thiamine Hcl 100 Mg Tablet PO 100 mg DAILY GERMAIN Administration Trazodone HCl 50 mg 06/22/21 20:32 06/22/21 22:22 Trazodone Hcl 50 Mg Tablet PO 50 mg BEDTIME PRN Administration Insomnia Allergies Allergies Allergy/AdvReac Type Severity Reaction Status Date / Time aspirin [ASA] AdvReac Mild Abdominal Verified 06/22/21 16:39 Pain Assessment & Plan Assessment & Plan (1) History of TIA (transient ischemic attack): Status: Acute Code(s): Z86.73 - Personal history of transient ischemic attack (TIA), and cerebral infarction without residual deficits (2) HLD (hyperlipidemia): Status: Acute Code(s): E78.5 - Hyperlipidemia, unspecified (3) HTN (hypertension): Status: Acute Code(s): I10 - Essential (primary) hypertension (4) Major depression, recurrent: Qualifiers: Active/Remission status: currently active Major depression episode severity: severe Psychotic features: without psychotic features Qualified Code(s): F33.2 - Major depressive disorder, recurrent severe without psychotic features Status: Acute Code(s): F33.9 - Major depressive disorder, recurrent, unspecified Assessment and Plan: 71 Y O F with PMH of?hypertension, hyperlipidemia, anxiety, depression, recent hospitalization at [facility] for TIA and now here fore major Depression and seem to be doing well. Plan: 1. . Discontinue Zoloft. 2. . Keep Remeron 7.5 mg p.o. q.h.s. to target depression Greater than 50% of the session was spent on counseling and/or coordination of care Reason for contiued inpatient stay Substantial Risk for: harm to self, inability to function, stable for discharge and med/psych decompensation
[2021-06-28 18:00] VITALS: BP 128/60; PULSE 74; RESP 17; TEMP 36.6; O2SAT 97
[2021-06-28] MEDS: Atorvastatin Calcium 80 MG TABLET PO (20:51)
[2021-06-28 20:52] VITALS: BP 126/60; PULSE 78
[2021-06-28] MEDS: Metoprolol Succinate ER 25 MG TAB.ER.24H PO (20:52)
[2021-06-28] MEDS: Mirtazapine 7.5 MG TABLET PO (20:52)
[2021-06-29 07:00] VITALS: BMI 31.2
[2021-06-29] MEDS: Thiamine HCL 100 MG TABLET PO (08:56)
[2021-06-29] MEDS: Clopidogrel Bisulfate 75 MG TABLET PO (08:56)
--- NOTE | 2021-06-29 12:57 | P.PNPSI_ITS ---
Subjective Subjective Date of Service: 06/29/21 Reason For Visit: Major Depressive Disorder Subjective Notes: Conditional Voluntary Interim History: The patient has attended to groups, she reported that the change in medication has helped better. Today, she stated that she was not over sedated as before. We discussed treatment options and she agreed to go on a h igher dose of Remeron to target depression. Review of Systems Acute medical concerns: No Mental Status Exam Mental Status Exam Patient Appearance: Well Grooomed Patient Orientation: Person and Situation Level of Consciousness: Awake Patient Behavior: Appropriate Mood Description: Calm and Depressed Affect Description: Constricted Patient Cognition Impaired: No Ability to Follow Directions: Good Speech Pattern: Clear Delusions: Not Present Thought Process: Linear Thought Content: positive for Circumstantial Judgement: Fair Diagnostics Vital Signs (24Hr): Vital Signs - 24 hr 06/28/21 18:00 06/28/21 20:52 Temperature 97.9 F Pulse Rate 74 78 Respiratory Rate 17 Blood Pressure 128/60 126/60 Pulse Oximetry 97 Body Mass Index 31.1 Labs Results: 06/26/21 19:36 06/26/21 19:36 Medications Medications Current Medications Generic Name Dose Route Start Last Admin Trade Name Freq PRN Reason Stop Dose Admin Acetaminophen 650 mg 06/22/21 20:32 06/26/21 18:03 Acetaminophen 325 Mg Tablet PO 650 mg Q6H PRN Administration Headache/Pain Mild Scale (1-3) Al Hydroxide/Mg Hydroxide 30 ml 06/22/21 20:32 06/27/21 20:18 Magnesium Hydrox/Alum Hydrox 30 Ml Oral.Susp PO 30 ml Q6H PRN Administration Heartburn/Nausea Atorvastatin Calcium 80 mg 06/23/21 21:00 06/28/21 20:51 Atorvastatin Calcium 80 Mg Tablet PO 80 mg BEDTIME GERMAIN Administration Clopidogrel Bisulfate 75 mg 06/23/21 09:00 06/29/21 08:56 Clopidogrel Bisulfate 75 Mg Tablet PO 75 mg DAILY GERAMIN Administration Hydroxyzine HCl 25 mg 06/22/21 20:32 Hydroxyzine Hcl 25 Mg Tablet PO Q6H PRN Anxiety Loperamide HCl 2 mg 06/25/21 16:51 06/26/21 09:10 Loperamide Hcl 2 Mg Capsule PO 2 mg Q6H PRN Administration Diarrhea Magnesium Hydroxide 30 ml 06/22/21 20:32 Milk Of Magnesia 30 Ml Oral.Susp PO DAILY PRN Constipation Metoprolol Succinate 25 mg 06/24/21 21:00 06/28/21 20:52 Metoprolol Succinate Er 25 Mg Tab.Er.24h PO 25 mg BEDTIME GERMAIN Administration Protocol Mirtazapine 7.5 mg 06/27/21 21:00 06/28/21 20:52 Mirtazapine 7.5 Mg Tablet PO 7.5 mg BEDTIME GERMAIN Administration Thiamine HCl 100 mg 06/23/21 09:00 06/29/21 08:56 Thiamine Hcl 100 Mg Tablet PO 100 mg DAILY GERMAIN Administration Trazodone HCl 50 mg 06/22/21 20:32 06/22/21 22:22 Trazodone Hcl 50 Mg Tablet PO 50 mg BEDTIME PRN Administration Insomnia Allergies Allergies Allergy/AdvReac Type Severity Reaction Status Date / Time aspirin [ASA] AdvReac Mild Abdominal Verified 06/22/21 16:39 Pain Assessment & Plan Assessment & Plan (1) History of TIA (transient ischemic attack): Status: Acute Code(s): Z86.73 - Personal history of transient ischemic attack (TIA), and cerebral infarction without residual deficits (2) HLD (hyperlipidemia): Status: Acute Code(s): E78.5 - Hyperlipidemia, unspecified (3) HTN (hypertension): Status: Acute Code(s): I10 - Essential (primary) hypertension (4) Major depression, recurrent: Qualifiers: Active/Remission status: currently active Major depression episode severity: severe Psychotic features: without psychotic features Qualified Code(s): F33.2 - Major depressive disorder, recurrent severe without psychotic f eatures Status: Acute Code(s): F33.9 - Major depressive disorder, recurrent, unspecified Assessment and Plan: 71 Y O F with PMH of?hypertension, hyperlipidemia, anxiety, depression, recent hospitalization at [facility] for TIA and now here fore major Depression and seem to be doing well. Plan: 1. . Discontinue Zoloft. 2. . Increase Remeron up to 15 mg p.o. q.h.s. to target depression Greater than 50% of the session was spent on counseling and/or coordination of care Reason for contiued inpatient stay Substantial Risk for: inability to function and rapid decompensation
[2021-06-29 18:00] VITALS: BP 118/65; PULSE 84; RESP 17; TEMP 36.7; O2SAT 98
[2021-06-29] MEDS: Atorvastatin Calcium 80 MG TABLET PO (20:17)
[2021-06-29 20:18] VITALS: BP 122/68; PULSE 82
[2021-06-29] MEDS: Mirtazapine 15 MG TABLET PO (20:18)
[2021-06-29] MEDS: Metoprolol Succinate ER 25 MG TAB.ER.24H PO (20:18)
[2021-06-29] MEDS: Magnesium Hydrox/Alum Hydrox 30 ML ORAL.SUSP PO (20:22)
[2021-06-29] MEDS: Acetaminophen 325 MG TABLET 650 MG PO (20:22)
[2021-06-30] MEDS: Thiamine HCL 100 MG TABLET PO (08:32)
[2021-06-30] MEDS: Clopidogrel Bisulfate 75 MG TABLET PO (08:32)
--- NOTE | 2021-06-30 12:30 | P.PNPSI_ITS ---
Subjective Subjective Date of Service: 06/30/21 Reason For Visit: Major Depressive Disorder Subjective Notes: Conditional Voluntary Interim History: The patient has attended to several groups, she reports depressive symptoms such as depressed mood, anhedonia and lack of energy. Yesterday we increased Remeron up to 15 mg p.o. q.h.s. to target depression and she has reported mild over-sedation in the morning. We discussed options and she agreed to continue on the same dose. Medication Compliance: Yes Side effects from medications: No Attending Groups: Yes Review of Systems Acute medical concerns: No Medical Review of Systems: unchanged Mental Status Exam Mental Status Exam Patient Appearance: Well Grooomed Patient Orientation: Person, Place, Time and Situation Level of Consciousness: Awake Patient Behavior: Appropriate Mood Description: Calm and Depressed Affect Description: Calm Patient Cognition Impaired: No Ability to Follow Directions: Good Speech Pattern: Clear Memory Description: Intact Hallucinations: None Delusions: Not Present Thought Process: Goal Oriented Thought Content: positive for Intact Depressive Symptoms: Increased Anxiety, Difficulty Sleeping, Loss of Int. in A ctivity, Feelings of Worthlessness, Loss of Energy and Difficulty Concentrating Judgement: Fair Diagnostics Vital Signs (24Hr): Vital Signs - 24 hr 06/29/21 18:00 06/29/21 20:18 Temperature 98.1 F Pulse Rate 84 82 Respiratory Rate 17 Blood Pressure 118/65 122/68 Pulse Oximetry 98 Body Mass Index 31.2 Labs Results: 06/26/21 19:36 06/26/21 19:36 Medications Medications Current Medications Generic Name Dose Route Start Last Admin Trade Name Freq PRN Reason Stop Dose Admin Acetaminophen 650 mg 06/22/21 20:32 06/29/21 20:22 Acetaminophen 325 Mg Tablet PO 650 mg Q6H PRN Administration Headache/Pain Mild Scale (1-3) Al Hydroxide/Mg Hydroxide 30 ml 06/22/21 20:32 06/29/21 20:22 Magnesium Hydrox/Alum Hydrox 30 Ml Oral.Susp PO 30 ml Q6H PRN Administration Heartburn/Nausea Atorvastatin Calcium 80 mg 06/23/21 21:00 06/29/21 20:17 Atorvastatin Calcium 80 Mg Tablet PO 80 mg BEDTIME GERMAIN Administration Clopidogrel Bisulfate 75 mg 06/23/21 09:00 06/30/21 08:32 Clopidogrel Bisulfate 75 Mg Tablet PO 75 mg DAILY GERMAIN Administration Hydroxyzine HCl 25 mg 06/22/21 20:32 Hydroxyzine Hcl 25 Mg Tablet PO Q6H PRN Anxiety Loperamide HCl 2 mg 06/25/21 16:51 06/26/21 09:10 Loperamide Hcl 2 Mg Capsule PO 2 mg Q6H PRN Administration Diarrhea Magnesium Hydroxide 30 ml 06/22/21 20:32 Milk Of Magnesia 30 Ml Oral.Susp PO DAILY PRN Constipation Metoprolol Succinate 25 mg 06/24/21 21:00 06/29/21 20:18 Metoprolol Succinate Er 25 Mg Tab.Er.24h PO 25 mg BEDTIME GERMAIN Administration Protocol Mirtazapine 15 mg 06/29/21 21:00 06/29/21 20:18 Mirtazapine 15 Mg Tablet PO 15 mg BEDTIME GERMAIN Administration Thiamine HCl 100 mg 06/23/21 09:00 06/30/21 08:32 Thiamine Hcl 100 Mg Tablet PO 100 mg DAILY GERMAIN Administration Trazodone HCl 50 mg 06/22/21 20:32 06/22/21 22:22 Trazodone Hcl 50 Mg Tablet PO 50 mg BEDTIME PRN Administration Insomnia Allergies Allergies Allergy/AdvReac Type Severity Reaction Status Date / Time aspirin [ASA] AdvReac Mild Abdominal Verified 06/22/21 16:39 Pain Assessment & Plan Assessment & Plan (1) History of TIA (transient ischemic attack): Status: Acute Code(s): Z86.73 - Personal history of transient ischemic attack (TIA), and cerebral infarction without residual deficits (2) HLD (hyperlipidemia): Status: Acute Code(s): E78.5 - Hyperlipidemia, unspecified (3) HTN (hypertension): Status: Acute Code(s): I10 - Essential (primary) hypertension (4) Major depression, recurrent: Qualifiers: Active/Remission status: currently active Major depression episode severity: severe Psychotic features: without psychotic features Qualified Code(s): F33.2 - Major depressive disorder, recurrent severe without psychotic features Status: Acute Code(s): F33.9 - Major depressive disorder, recurrent, unspecified Assessment and Plan: 71 Y O F with PMH of?hypertension, hyperlipidemia, anxiety, depression, recent hospitalization at [facility] for TIA and now here fore major Depression and seem to be doing well. Plan: 1. . Keep Remeron 15 mg p.o. q.h.s. to target depression Greater than 50% of the session was spent on counseling and/or coordination of care Reason for contiued inpatient stay Substantial Risk for: inability to function, rapid decompensation and med/psych decompensation
[2021-06-30 18:00] VITALS: BP 131/61; PULSE 66; RESP 17; TEMP 36.8; O2SAT 98
[2021-06-30] MEDS: Loperamide HCl 2 MG CAPSULE PO (19:57)
[2021-06-30] MEDS: Atorvastatin Calcium 80 MG TABLET PO (19:57)
[2021-06-30 19:58] VITALS: BP 131/61; PULSE 66
[2021-06-30] MEDS: Mirtazapine 15 MG TABLET PO (19:58)
[2021-06-30] MEDS: Metoprolol Succinate ER 25 MG TAB.ER.24H PO (19:58)
[2021-07-01 06:00] VITALS: BP 118/74; PULSE 80; RESP 16; TEMP 36.2; O2SAT 98
[2021-07-01 06:23] LABS: MANUAL DIFF FLAG NO
[2021-07-01 06:50] LABS: Anion Gap 12 (12-20); Blood Urea Nitrogen 11 mg/dL (9-16); Calcium 8.3 mg/dL (8.4-10.2); Carbon Dioxide 29 mmol/L (22-29); Chloride 108 mmol/L (96-108); Creatinine Clr Calc Pharmacy 70.5; Estimated Glomerular Filt Rate > 60; Glucose Random 90 mg/dL (60-115); Potassium 3.6 mmol/L (3.3-5.1); Sodium 145 mmol/L (135-145)
[2021-07-01 06:53] LABS: Basophils Percent Auto 0.2 % (0-2); Eosinophils Absolute Auto 0.2 X10*3/uL (0.0-0.4); Eosinophils Percent Auto 2.4 % (0-4); Hematocrit 28.5 % (37-47); Imm Gran Abs Auto 0.04 X10*3/uL (0.00-0.03); Imm Gran Pct Auto 0.6 % (0.0-0.4); Lymphocytes Absolute Auto 1.8 X10*3/uL (1.2-4.9); Lymphocytes Percent Auto 28.1 % (20-40); Mean Corpuscular HGB Conc 31.6 g/dl (31.0-35.0); Mean Corpuscular Hemoglobin 25.9 pg (27.0-33.0); Mean Corpuscular Volume 82.1 fL (80-98); Mean Platelet Volume 10.7 fL (9.4-12.3); Monocytes Absolute Auto 0.8 X10*3/uL (0.1-1.2); Monocytes Percent Auto 11.9 % (2-11); Neutrophils Absolute Auto 3.7 X10*3/uL (2.0-8.3); Neutrophils Percent Auto 56.8 % (45-73); Platelet Count 276 X10*3/uL (160-400); Red Blood Count 3.47 X10*6/uL (4.20-5.50); Red Cell Distribution Width 14.5 % (11.0-16.0); White Blood Count 6.5 X10*3/uL (4.8-10.8)
[2021-07-01] MEDS: Clopidogrel Bisulfate 75 MG TABLET PO (08:59)
[2021-07-01] MEDS: Thiamine HCL 100 MG TABLET PO (08:59)
[2021-07-01] MEDS: Loperamide HCl 2 MG CAPSULE PO ×2 (09:08→20:16)
--- NOTE | 2021-07-01 09:58 | HO.PSYCHPN ---
Subjective Subjective Date of Service: 07/01/21 Reason For Visit: Major Depressive Disorder Interim History: The patient reported sporadic diarrhea, probably IBS. So far, she is tolerating very well Remeron at hs to target depression. No side effects, slightly better mood Review of Systems Acute medical concerns: No Medical Review of Systems: unchanged Mental Status Exam Mental Status Exam Patient Appearance: Well Grooomed Patient Orientation: Person, Place, Time and Situation Level of Consciousness: Awake Patient Behavior: Appropriate Mood Description: Calm Affect Description: Constricted Ability to Follow Directions: Good Speech Pattern: Clear Memory Description: Intact Hallucinations: None Thought Process: Linear Thought Content: positive for Intact Judgement: Fair Diagnostics Vital Signs (24Hr): Vital Signs - 24 hr 06/30/21 18:00 06/30/21 19:58 Temperature 98.3 F Pulse Rate 66 66 Respiratory Rate 17 Blood Pressure 131/61 131/61 Pulse Oximetry 98 Body Mass Index 31.2 Labs Results: 07/01/21 06:19 07/01/21 06:19 Labs: Laboratory Results - last 48 hr 07/01/21 07/01/21 06:19 06:19 WBC 6.5 RBC 3.47 L Hgb 9.0 L Hct 28.5 L MCV 82.1 MCH 25.9 L MCHC 31.6 RDW 14.5 Plt Count 276 MPV 10.7 Immature Gran % (Auto) 0.6 H Neut % (Auto) 56.8 Lymph % (Auto) 28.1 [place] % (Auto) 11.9 H Eos % (Auto) 2.4 Baso % (Auto) 0.2 Lymph # (Auto) 1.8 [place] # (Auto) 0.8 Eos # (Auto) 0.2 Baso # (Auto) 0.0 Abs Immat Gran (auto) 0.04 H Absolute Neuts (auto) 3.7 Absolute Nucleated RBC 0.000 Nucleated RBC % (auto) 0.0 Sodium 145 Potassium 3.6 Chloride 108 Carbon Dioxide 29 Anion Gap 12 BUN 11 Creatinine 0.76 Estim Creat Clear Calc 70.5 Estimated GFR > 60 Random Glucose 90 Calcium 8.3 L Medications Medications Current Medications Generic Name Dose Route Start Last Admin Trade Name Freq PRN Reason Stop Dose Admin Acetaminophen 650 mg 06/22/21 20:32 06/29/21 20:22 Acetaminophen 325 Mg Tablet PO 650 mg Q6H PRN Administration Headache/Pain Mild Scale (1-3) Al Hydroxide/Mg Hydroxide 30 ml 06/22/21 20:32 06/29/21 20:22 Magnesium Hydrox/Alum Hydrox 30 Ml Oral.Susp PO 30 ml Q6H PRN Administration Heartburn/Nausea Atorvastatin Calcium 80 mg 06/23/21 21:00 06/30/21 19:57 Atorvastatin Calcium 80 Mg Tablet PO 80 mg BEDTIME GERMAIN Administration Clopidogrel Bisulfate 75 mg 06/23/21 09:00 07/01/21 08:59 Clopidogrel Bisulfate 75 Mg Tablet PO 75 mg DAILY GERMAIN Administration Hydroxyzine HCl 25 mg 06/22/21 20:32 Hydroxyzine Hcl 25 Mg Tablet PO Q6H PRN Anxiety Loperamide HCl 2 mg 06/25/21 16:51 07/01/21 09:08 Loperamide Hcl 2 Mg Capsule PO 2 mg Q6H PRN Administration Diarrhea Magnesium Hydroxide 30 ml 06/22/21 20:32 Milk Of Magnesia 30 Ml Oral.Susp PO DAILY PRN Constipation Metoprolol Succinate 25 mg 06/24/21 21:00 06/30/21 19:58 Metoprolol Succinate Er 25 Mg Tab.Er.24h PO 25 mg BEDTIME GERMAIN Administration Protocol Mirtazapine 15 mg 06/29/21 21:00 06/30/21 19:58 Mirtazapine 15 Mg Tablet PO 15 mg BEDTIME GERMAIN Administration Thiamine HCl 100 mg 06/23/21 09:00 07/01/21 08:59 Thiamine Hcl 100 Mg Tablet PO 100 mg DAILY GERMAIN Administration Trazodone HCl 50 mg 06/22/21 20:32 06/22/21 22:22 Trazodone Hcl 50 Mg Tablet PO 50 mg BEDTIME PRN Administration Insomnia Allergies Allergies Allergy/AdvReac Type Severity Reaction Status Date / Time aspirin [ASA] AdvReac Mild Abdominal Verified 06/22/21 16:39 Pain Assessment & Plan Assessment & Plan (1) History of TIA (transient ischemic attack): Status: Acute Code(s): Z86.73 - Personal history of transient ischemic attack (TIA), and cerebral infarction without residual deficits (2) HLD (hyperlipidemia): Status: Acute Code(s): E78.5 - Hyperlipidemia, unspecified (3) HTN (hypertension): Status: Acute Code(s): I10 - Essential (primary) hypertension (4) Major depression, recurrent: Qualifiers: Active/Remission status: currently active Major depression episode severity: severe Psychotic features: without psychotic features Qualified Code(s): F33.2 - Major depressive disorder, recurrent severe without psychotic features Status: Acute Code(s): F33.9 - Major depressive disorder, recurrent, unspecified Assessment and Plan: 71 Y O F with PMH of?hypertension, hyperlipidemia, anxiety, depression, recent hospitalization at [facility] for TIA and now here fore major Depression and seem to be doing well. Plan: 1. . Keep Remeron 15 mg p.o. q.h.s. to target depression Greater than 50% of the session was spent on counseling and/or coordination of care Reason for contiued inpatient stay Substantial Risk for: inability to function, rapid decompensation and med/psych decompensation
[2021-07-01 18:00] VITALS: BP 111/55; PULSE 69; RESP 16; TEMP 36.2; O2SAT 100
[2021-07-01 20:09] VITALS: BP 110/66; PULSE 66
[2021-07-01] MEDS: Metoprolol Succinate ER 25 MG TAB.ER.24H PO (20:09)
[2021-07-01] MEDS: Atorvastatin Calcium 80 MG TABLET PO (20:11)
[2021-07-01] MEDS: Mirtazapine 15 MG TABLET PO (20:11)
--- NOTE | 2021-07-02 09:14 | HO.PSYCHPN ---
Subjective Subjective Date of Service: 07/02/21 Reason For Visit: Major Depressive Disorder Subjective Notes: Conditional Voluntary Interim History: Nursing staff reported that the patient had a few loose stools, but no diarrhea. She slept well last night. She was seeing mostly isolating in her room. On interview, the patient reported some dysphoria but no suicidal ideation. Review of Systems Acute medical concerns: No Medical Review of Systems: unchanged Mental Status Exam Mental Status Exam Patient Appearance: Well Grooomed Patient Orientation: Person, Place, Time and Situation Level of Consciousness: Awake Patient Behavior: Appropriate Mood Description: Calm and Depressed Affect Description: Constricted Patient Cognition Impaired: No Ability to Follow Directions: Good Speech Pattern: Clear Memory Description: Intact Hallucinations: None Delusions: Not Present Thought Process: Intact Thought Content: positive for Circumstantial Depressive Symptoms: Increased Anxiety Judgement: Fair Diagnostics Vital Signs (24Hr): Vital Signs - 24 hr 07/01/21 18:00 07/01/21 20:09 Temperature 97.2 F Pulse Rate 69 66 Respiratory Rate 16 Blood Pressure 111/55 L 110/66 Pulse Oximetry 100 Body Mass Index 31.2 Labs Results: 07/01/21 06:19 07/01/21 06:19 Labs: Laboratory Results - last 48 hr 07/01/21 07/01/21 06:19 06:19 WBC 6.5 RBC 3.47 L Hgb 9.0 L Hct 28.5 L MCV 82.1 MCH 25.9 L MCHC 31.6 RDW 14.5 Plt Count 276 MPV 10.7 Immature Gran % (Auto) 0.6 H Neut % (Auto) 56.8 Lymph % (Auto) 28.1 [place] % (Auto) 11.9 H Eos % (Auto) 2.4 Baso % (Auto) 0.2 Lymph # (Auto) 1.8 [place] # (Auto) 0.8 Eos # (Auto) 0.2 Baso # (Auto) 0.0 Abs Immat Gran (auto) 0.04 H Absolute Neuts (auto) 3.7 Absolute Nucleated RBC 0.000 Nucleated RBC % (auto) 0.0 Sodium 145 Potassium 3.6 Chloride 108 Carbon Dioxide 29 Anion Gap 12 BUN 11 Creatinine 0.76 Estim Creat Clear Calc 70.5 Estimated GFR > 60 Random Glucose 90 Calcium 8.3 L Medications Medications Current Medications Generic Name Dose Route Start Last Admin Trade Name Freq PRN Reason Stop Dose Admin Acetaminophen 650 mg 06/22/21 20:32 06/29/21 20:22 Acetaminophen 325 Mg Tablet PO 650 mg Q6H PRN Administration Headache/Pain Mild Scale (1-3) Al Hydroxide/Mg Hydroxide 30 ml 06/22/21 20:32 06/29/21 20:22 Magnesium Hydrox/Alum Hydrox 30 Ml Oral.Susp PO 30 ml Q6H PRN Administration Heartburn/Nausea Atorvastatin Calcium 80 mg 06/23/21 21:00 07/01/21 20:11 Atorvastatin Calcium 80 Mg Tablet PO 80 mg BEDTIME GERMAIN Administration Clopidogrel Bisulfate 75 mg 06/23/21 09:00 07/01/21 08:59 Clopidogrel Bisulfate 75 Mg Tablet PO 75 mg DAILY GERMAIN Administration Hydroxyzine HCl 25 mg 06/22/21 20:32 Hydroxyzine Hcl 25 Mg Tablet PO Q6H PRN Anxiety Loperamide HCl 2 mg 06/25/21 16:51 07/01/21 20:16 Loperamide Hcl 2 Mg Capsule PO 2 mg Q6H PRN Administration Diarrhea Magnesium Hydroxide 30 ml 06/22/21 20:32 Milk Of Magnesia 30 Ml Oral.Susp PO DAILY PRN Constipation Metoprolol Succinate 25 mg 06/24/21 21:00 07/01/21 20:09 Metoprolol Succinate Er 25 Mg Tab.Er.24h PO 25 mg BEDTIME GERMAIN Administration Protocol Mirtazapine 15 mg 06/29/21 21:00 07/01/21 20:11 Mirtazapine 15 Mg Tablet PO 15 mg BEDTIME GERMAIN Administration Thiamine HCl 100 mg 06/23/21 09:00 07/01/21 08:59 Thiamine Hcl 100 Mg Tablet PO 100 mg DAILY GERMAIN Administration Trazodone HCl 50 mg 06/22/21 20:32 06/22/21 22:22 Trazodone Hcl 50 Mg Tablet PO 50 mg BEDTIME PRN Administration Insomnia Allergies Allergies Allergy/AdvReac Type Severity Reaction Status Date / Time aspirin [ASA] AdvReac Mild Abdominal Verified 06/22/21 16:39 Pain Assessment & Plan Assessment & Plan (1) History of TIA (transient ischemic attack): Status: Acute Code(s): Z86.73 - Personal history of transient ischemic attack (TIA), and cerebral infarction without residual deficits (2) HLD (hyperlipidemia): Status: Acute Code(s): E78.5 - Hyperlipidemia, unspecified (3) HTN (hypertension): Status: Acute Code(s): I10 - Essential (primary) hypertension (4) Major depression, recurrent: Qualifiers: Active/Remission status: currently active Major depression episode severity: severe Psychotic features: without psychotic features Qualified Code(s): F33.2 - Major depressive disorder, recurrent severe without psychotic features Status: Acute Code(s): F33.9 - Major depressive disorder, recurrent, unspecified Assessment and Plan: 71 Y O F with PMH of?hypertension, hyperlipidemia, anxiety, depression, recent hospitalization at [facility] for TIA and now here fore major Depression and seem to be doing well. Plan: 1. . Keep Remeron 15 mg p.o. q.h.s. to target depression Greater than 50% of the session was spent on counseling and/or coordination of care Reason for contiued inpatient stay Substantial Risk for: inability to function, rapid decompensation and med/psych decompensation
[2021-07-02] MEDS: Acetaminophen 325 MG TABLET 650 MG PO (09:50)
[2021-07-02] MEDS: Clopidogrel Bisulfate 75 MG TABLET PO (09:51)
[2021-07-02] MEDS: Thiamine HCL 100 MG TABLET PO (09:51)
[2021-07-02 10:08] VITALS: BP 119/57; PULSE 83; RESP 18; TEMP 36.6; O2SAT 100
[2021-07-02 17:52] VITALS: BP 132/63; PULSE 69; RESP 18; TEMP 36.6; O2SAT 98
[2021-07-02 18:00] VITALS: BP 132/63; PULSE 69; RESP 16; TEMP 36.6; O2SAT 98
[2021-07-02 21:20] VITALS: BP 132/76; PULSE 69
[2021-07-02] MEDS: Metoprolol Succinate ER 25 MG TAB.ER.24H PO (21:20)
[2021-07-02] MEDS: Atorvastatin Calcium 80 MG TABLET PO (21:20)
[2021-07-02] MEDS: Mirtazapine 15 MG TABLET PO (21:21)
[2021-07-03 06:00] VITALS: BP 132/64; PULSE 70; TEMP 36.8; O2SAT 98
[2021-07-03] MEDS: Thiamine HCL 100 MG TABLET PO (09:20)
[2021-07-03] MEDS: Clopidogrel Bisulfate 75 MG TABLET PO (09:20)
--- NOTE | 2021-07-03 11:47 | HO.PSYCHPN ---
Subjective Subjective Date of Service: 07/04/21 Reason For Visit: Major Depressive Disorder Subjective Notes: Conditional Voluntary Interim History: Nursing staff reported that she has been doing fairly well, no new symptoms she slept last night. The patient reported feeling dysphoric with lack of energy but with no suicidal ideation. Review of Systems Acute medical concerns: No Medical Review of Systems: unchanged Mental Status Exam Mental Status Exam Patient Appearance: Well Grooomed Patient Orientation: Person Level of Consciousness: Awake Patient Behavior: Appropriate Mood Description: Calm Affect Description: Constricted Patient Cognition Impaired: No Ability to Follow Directions: Good Speech Pattern: Clear Memory Description: Intact Hallucinations: None Delusions: Not Present Thought Process: Goal Oriented Thought Content: positive for Circumstantial Judgement: Fair Diagnostics Vital Signs (24Hr): Vital Signs - 24 hr 07/02/21 17:52 07/02/21 18:00 07/02/21 21:20 Temperature 97.8 F 97.8 F Pulse Rate 69 69 69 Respiratory Rate 18 16 Blood Pressure 132/63 132/63 132/76 Pulse Oximetry 98 98 Body Mass Index 31.2 Labs Results: 07/01/21 06:19 07/01/21 06:19 Medications Medications Current Medications Generic Name Dose Route Start Last Admin Trade Name Freq PRN Reason Stop Dose Admin Acetaminophen 650 mg 06/22/21 20:32 07/02/21 09:50 Acetaminophen 325 Mg Tablet PO 650 mg Q6H PRN Administration Headache/Pain Mild Scale (1-3) Al Hydroxide/Mg Hydroxide 30 ml 06/22/21 20:32 06/29/21 20:22 Magnesium Hydrox/Alum Hydrox 30 Ml Oral.Susp PO 30 ml Q6H PRN Administration Heartburn/Nausea Atorvastatin Calcium 80 mg 06/23/21 21:00 07/02/21 21:20 Atorvastatin Calcium 80 Mg Tablet PO 80 mg BEDTIME GERMAIN Administration Clopidogrel Bisulfate 75 mg 06/23/21 09:00 07/03/21 09:20 Clopidogrel Bisulfate 75 Mg Tablet PO 75 mg DAILY GERMAIN Administration Hydroxyzine HCl 25 mg 06/22/21 20:32 Hydroxyzine Hcl 25 Mg Tablet PO Q6H PRN Anxiety Loperamide HCl 2 mg 06/25/21 16:51 07/01/21 20:16 Loperamide Hcl 2 Mg Capsule PO 2 mg Q6H PRN Administration Diarrhea Magnesium Hydroxide 30 ml 08/05/21 20:32 Milk Of Magnesia 30 Ml Oral.Susp PO DAILY PRN Constipation Metoprolol Succinate 25 mg 06/24/21 21:00 07/02/21 21:20 Metoprolol Succinate Er 25 Mg Tab.Er.24h PO 25 mg BEDTIME GERMAIN Administration Protocol Mirtazapine 15 mg 06/29/21 21:00 07/02/21 21:21 Mirtazapine 15 Mg Tablet PO 15 mg BEDTIME GERMAIN Administration Thiamine HCl 100 mg 06/23/21 09:00 07/03/21 09:20 Thiamine Hcl 100 Mg Tablet PO 100 mg DAILY GERMAIN Administration Trazodone HCl 50 mg 06/22/21 20:32 06/22/21 22:22 Trazodone Hcl 50 Mg Tablet PO 50 mg BEDTIME PRN Administration Insomnia Allergies Allergies Allergy/AdvReac Type Severity Reaction Status Date / Time aspirin [ASA] AdvReac Mild Abdominal Verified 06/22/21 16:39 Pain Assessment & Plan Assessment & Plan (1) History of TIA (transient ischemic attack): Status: Acute Code(s): Z86.73 - Personal history of transient ischemic attack (TIA), and cerebral infarction without residual deficits (2) HLD (hyperlipidemia): Status: Acute Code(s): E78.5 - Hyperlipidemia, unspecified (3) HTN (hypertension): Status: Acute Code(s): I10 - Essential (primary) hypertension (4) Major depression, recurrent: Qualifiers: Active/Remission status: currently active Major depression episode severity: severe Psychotic features: without psychotic features Qualified Code(s): F33.2 - Major depressive disorder, recurrent severe without psychotic features Status: Acute Code(s): F33.9 - Major depressive disorder, recurrent, unspecified Assessment and Plan: 71 Y O F with PMH of?hypertension, hyperlipidemia, anxiety, depression, recent hospitalization at [facility] for TIA and now here fore major Depression and seem to be doing well. Plan: 1. . Keep Remeron 15 mg p.o. q.h.s. to target depression 2. Pre per discharge planning with follow-up at the [facility]. Greater than 50% of the session was spent on counseling and/or coordination of care Reason for contiued inpatient stay Substantial Risk for: inability to function, rapid decompensation and med/psych decompensation
[2021-07-03 20:25] VITALS: BP 110/57; PULSE 60; RESP 18; TEMP 36.5; O2SAT 99
[2021-07-03 21:10] VITALS: BP 110/57; PULSE 60
[2021-07-03] MEDS: Atorvastatin Calcium 80 MG TABLET PO (21:10)
[2021-07-03] MEDS: Metoprolol Succinate ER 25 MG TAB.ER.24H PO (21:10)
[2021-07-03] MEDS: Mirtazapine 15 MG TABLET PO (21:11)
[2021-07-04 06:10] VITALS: BP 112/57; PULSE 55; RESP 16; TEMP 36.2; O2SAT 97
[2021-07-04] MEDS: Clopidogrel Bisulfate 75 MG TABLET PO (07:59)
[2021-07-04] MEDS: Thiamine HCL 100 MG TABLET PO (07:59)
--- NOTE | 2021-07-04 09:50 | P.DS_ITS ---
DS: Providers Provider Date of Service: 07/04/21 Date of admission: 06/22/21 15:38 Date of discharge: 07/04/21 Primary care physician: Camila Bernal MD Consults: 06/22/21 20:42 Consult to Hospitalist Routine Consulting Provider: Hospitalist Reason For Exam[place] [facility] [place], new admit Attending physician on discharge: Richard Alonzo DS: Diagnosis Discharge Diagnosis (1) History of TIA (transient ischemic attack): Status: Acute (2) HLD (hyperlipidemia): Status: Acute (3) HTN (hypertension): Status: Acute (4) Major depression, recurrent: Status: Acute DS: Medications Discharge Medications Home Medications: Home Medications Medication Instructions Recorded Confirmed atorvastatin 80 mg tablet 80 mg PO DAILY 06/26/21 06/26/21 [id number] 1 cap PO Q8H PRN 06/26/21 06/26/21 50 mg-300 mg-40 mg capsule (Fioricet) metoprolol succinate 50 mg capsule 50 mg PO DAILY 06/26/21 06/26/21 sprinkle, ext. release 24 hr paroxetine HCl 40 mg tablet 40 mg PO DAILY 06/26/21 06/26/21 trazodone 50 mg tablet 50 mg BEDTIME PRN 06/26/21 06/29/21 Mental Status Exam Mental Status Exam Patient Appearance: Well Grooomed Patient Orientation: Person, Place, Time and Situation Level of Consciousness: Awake and Appropriate Patient Behavior: Appropriate, Cooperative and Good Eye Contact Mood Description: Calm Affect Description: Constricted Patient Cognition Impaired: No Ability to Follow Directions: Good Speech Pattern: Clear Memory Description: Intact Hallucinations: None Delusions: Not Present Thought Process: Goal Oriented Thought Content: positive for Circumstantial Depressive Symptoms: Increased Anxiety, Difficulty Sleeping, Feelings of Worthlessness and Feelings of Guilt Judgement: Fair Data Data Completed and Pending Completed studies during hospitalization [Text1]: 07/01/21 07/01/21 06:19 06:19 WBC 6.5 RBC 3.47 L Hgb 9.0 L Hct 28.5 L MCV 82.1 MCH 25.9 L MCHC 31.6 RDW 14.5 Plt Count 276 MPV 10.7 Immature Gran % (Auto) 0.6 H Neut % (Auto) 56.8 Lymph % (Auto) 28.1 [place] % (Auto) 11.9 H Eos % (Auto) 2.4 Baso % (Auto) 0.2 Lymph # (Auto) 1.8 [place] # (Auto) 0.8 Eos # (Auto) 0.2 Baso # (Auto) 0.0 Abs Immat Gran (auto) 0.04 H Absolute Neuts (auto) 3.7 Absolute Nucleated RBC 0.000 Nucleated RBC % (auto) 0.0 Sodium 145 Potassium 3.6 Chloride 108 Carbon Dioxide 29 Anion Gap 12 BUN 11 Creatinine 0.76 Estim Creat Clear Calc 70.5 Estimated GFR > 60 Random Glucose 90 Calcium 8.3 L DS: Summary Hospital Course Hospital Course: The patient was initially admitted at [facility] for medical reasons, she was diagnosed with a TIA and UTI. She was medically treated on while she was at [facility], she verbalized suicidal ideation, depressive symptoms as she was unable to contract for safety. The patient was transferred to this facility for psychiatric stabilization. During the intake, the patient reported that she has never been treated for depression formally, historically she has tried Paxil and Zoloft, andshe agreed to start Zoloft on the slow titration. Zoloft was titrated up to 100 mg p.o. q.a.m. but unfortunately the patient developed side effects elicited by over- sedation and tremors. Zoloft had to be discontinued and we discussed further therapeutic options. Since the patient has poor sleep she agreed to start Remeron to target insomnia and depression. Remeron was titrated slowly up to 15 mg p.o. q.h.s. with further improvement and no side effects. We had a family meeting and he was cleared the patient had several psychosocial stressors such as the loss of several relatives, financial constraints and now living with her son's family. Her depressive symptoms improved, but she was still mildly dysphoric but with no suicidal ideation. Since there were no safety concerns discharge planning was discussed and she agreed to be referred to [facility] for continuation of treatment Time spent discussing smoking cessation with patient: 3 to 10 minutes Status at Discharge Cognitive/behavioral status at discharge: Intact Functional status at discharge: independent ambulation Overall status at discharge: patient is back to baseline Time Spent with Patient Time attestation: Total time spent providing and/or coordinating discharge services: Time spent: Less than 30 minutes Discharge Plan Discharge Patient Disposition: Home, Self-Care Discharge Diagnosis: Major Depressive Disorder Referrals: Que Nunze APRN [facility] [Other] - 07/05/21 11:00 am (Initial psychiatry appointment is scheduled for 07/05/21 for 11am. This is virtual appointment. ) [facility] [Other] - 1 Week ([facility] to contact you with therapy appointment once therapist is assigned. ) Camila Bernal MD [Primary Care Provider] - 1 Week Discharge Medications: New clopidogrel 75 mg Tablet 75 mg PO DAILY 30 Days Qty: 30 RF: 0 mirtazapine 15 mg Tablet 15 mg PO BEDTIME 30 Days Qty: 30 RF: 0 thiamine mononitrate (vit B1) 100 mg Tablet 100 mg PO DAILY 30 Days Qty: 30 RF: 0 Continued atorvastatin 80 mg Tablet 80 mg PO DAILY 30 Days Qty: 30 RF: 0 metoprolol succinate 50 mg Capsule,Sprinkle,Er 24hr 50 mg PO DAILY 30 Days Qty: 30 RF: 0 Changed trazodone 50 mg Tablet 50 mg PO BEDTIME PRN (Reason: Sleep) 30 Days Qty: 30 RF: 0 Discontinued paroxetine HCl 40 mg Tablet 40 mg PO DAILY RF: 0 [id number] [Fioricet] 50-300-40 mg Capsule 1 cap PO Q8H PRN (Reason: Headache) RF: 0 Discharge Orders: Discharge Order (Routine); Ordered 07/04/21 Ordered By: Richard Alonzo Diet: advance to usual diet Activity on Discharge: As tolerated Stand Alone Forms: Patient Portal Discharge page Care Plan Goals: Care Plan Goals already acchieved Health Concerns: Continue treatment by PCP. Prevention of TIA with Plavix Plan of Treatment: Continue medication treatment. Psychoterapy. PHP treatment. Assessment: Adult female with several psychosocial sltressors, with depression, stable now with aftercare PHP.
--- NOTE | 2021-07-04 14:18 | PC.NURSE ---
Pt walked off the unit at 1405 with all her belongings with her son. The pt reports she feels safe to go home, and has appts scheduled.
== END 2021-07-04 14:05 | disposition home or self-care (01) | DRG 885 ==
PROVIDERS: Registered Nurse; Admitting Provider Psychiatry & Neurology Psychiatry; PCP Family Medicine; Visit Provider Psychiatry & Neurology Psychiatry
DX: F33.2 Major depressive disorder, recurrent severe without psychotic features (principal); E78.5 Hyperlipidemia, unspecified; I10 Essential (primary) hypertension; Z86.73 Personal history of transient ischemic attack (TIA), and cerebral infarction without residual deficits; Z79.02 Long term (current) use of antithrombotics/antiplatelets; Z79.899 Other long term (current) drug therapy
CPT/HCPCS: 36415; 80048; 80307; 82607; 84439; 84443; 85025; 93005